=== PATIENT | female | born 1970 | race Two or more races ===

== ENCOUNTER 2020-12-21 20:33 | Emergency (ER) | payer BC, OTHER ==
[2020-12-21 20:48] VITALS: BP 128/87; PULSE 86; TEMP 98.7; BMI 31.4
[2020-12-21] MEDS ORDERED: IBUPROFEN 400 MG TABLET (FP) PO ONE ×3 (22:07→22:13)
== END 2020-12-21 22:42 | disposition home or self-care (01) ==
LOC: JERFT 20:33
DX: S83.91XA Sprain of unspecified site of right knee, initial encounter (principal); S39.012A Strain of muscle, fascia and tendon of lower back, initial encounter
CPT/HCPCS: 73562-TC-RT-FY; 99284-25